=== PATIENT | female | born 1990 | race American Indian/Alaskan Native ===

== ENCOUNTER 2016-09-30 14:29 | Outpatient (CLI) | payer MEDICAID ==
[2016-09-30 15:35] VITALS: BP 130/77
== END 2016-09-30 16:28 | disposition home or self-care (01) ==
LOC: TRG 14:29 → LD 15:31 → TRG 16:28
PROVIDERS: ATTEND Obstetrics & Gynecology
DX: O77.9 Labor and delivery complicated by fetal stress, unspecified (principal); O47.1 False labor at or after 37 completed weeks of gestation; Z3A.39 39 weeks gestation of pregnancy
CPT/HCPCS: 59025

== ENCOUNTER 2016-10-02 03:24 | Outpatient (CLI) | payer MEDICAID ==
[2016-10-02 03:41] VITALS: BP 107/69
[2016-10-02] MEDS ORDERED: VISTARIL PO ONE (05:11)
== END 2016-10-02 05:23 | disposition home or self-care (01) ==
LOC: TRG 03:24
PROVIDERS: ATTEND Obstetrics & Gynecology
DX: O77.9 Labor and delivery complicated by fetal stress, unspecified (principal); O47.9 False labor, unspecified; Z3A.00 Weeks of gestation of pregnancy not specified
CPT/HCPCS: Q0177

== ENCOUNTER 2016-10-02 23:32 | Inpatient (IN) | payer MEDICAID ==
[2016-10-03] MEDS ORDERED: LACTATED RINGERS 1,000 ML ONE (00:02)
[2016-10-03] MEDS: LACTATED RINGERS 1,000 ML IV SCH ×2 (00:20→16:52)
[2016-10-03] MEDS ORDERED: MORPHINE IV ONE ×2 (02:07→02:15)
[2016-10-03] MEDS ORDERED: STADOL IV PRN (04:38)
[2016-10-03] MEDS ORDERED: STADOL ONE (04:45)
[2016-10-03 05:29] LABS: Hematocrit 33.3 % (30.3-42.9); Mean Corpuscular HGB Conc 33 % (30-34); Mean Corpuscular Hemoglobin 29 pg (28-32); Mean Corpuscular Volume 89 fl (79-97); Platelet Count 231 K/mm3 (140-440); Red Blood Count 3.73 M/mm3 (3.65-5.03); Red Cell Distribution Width 13.6 % (13.2-15.2); White Blood Count 13.6 K/mm3 (4.5-11.0)
[2016-10-03] MEDS ORDERED: ePHEDrine SULFATE ONE (07:12)
--- NOTE | 2016-10-03 08:11 | Ultrasound Report ---
BIOPHYSICAL PROFILE: INDICATION: well being. COMPARISON: None similar. TECHNIQUE: Transabdominal ultrasound with Doppler interrogation. 2 - breathing movements 2 - movements 2 - posture and tone 2 - Qualitative amniotic fluid volume 8 - TOTAL SCORE OF POSSIBLE 8 Heart Rate (bpm) 154
--- NOTE | 2016-10-03 08:13 | Anesthesia Consultation ---
Anesthesia Consult and Med Hx Date of service: 10/03/16 - Airway Anesthetic Teeth Evaluation: Good ROM Head & Neck: Adequate Mental/Hyoid Distance: Adequate Mallampati Class: Class II Intubation Access Assessment: Probably Good - Pulmonary Exam CTA: Yes - Cardiac Exam Cardiac Exam: RRR - Pre-Operative Health Status ASA Pre-Surgery Classification: ASA2 Proposed Anesthetic Plan: Epidural - Pulmonary Hx Asthma: No COPD: No Hx Pneumonia: No - Cardiovascular System Hx Hypertension: No - Central Nervous System Hx Seizures: No Hx Psychiatric Problems: No - Endocrine Hx Renal Disease: No Hx End Stage Renal Disease: No Hx Hypothyroidism: No Hx Hyperthyroidism: No - Hematic Hx Anemia: No Hx Sickle Cell Disease: No - Other Systems Hx Alcohol Use: No
[2016-10-03] MEDS ORDERED: ePHEDrine SULFATE IV PRN (08:14)
[2016-10-03] MEDS ORDERED: NARCAN 2 MG/2 ML IV PRN (08:14)
--- NOTE | 2016-10-03 08:19 | Ultrasound Report ---
OB LIMITED INDICATION: BRIDGETTE. COMPARISON: None similar at this institution. TECHNIQUE: Transabdominal grayscale ultrasound with Doppler interrogation. Gestation: Alejo Amniotic Fluid: WNL (7-24 cm) BRIDGETTE = 10.5 cm Heart Rate: 152 BPM
[2016-10-03] MEDS ORDERED: fentaNYL-BUPIV 2 MCG/ML-0.125% 100 ML EPIDURAL ONE (08:57)
[2016-10-03] MEDS: fentaNYL-BUPIV 2 MCG/ML-0.125% 100 ML EPIDURAL SCH ×2 (09:20→16:50)
[2016-10-03] MEDS ORDERED: D5LR 1,000 ML IV SCH (09:30)
[2016-10-03] MEDS ORDERED: FLUARIX QUAD 2016-2017(36 MOS+) IM ONE (12:00)
[2016-10-03] MEDS ORDERED: PITOCin/NS 30 UNIT/500ML 500 ML IV SCH (13:00)
[2016-10-03] MEDS ORDERED: XYLOCAINE MPF 2% ONE ×3 (19:42→22:30)
[2016-10-03] MEDS ORDERED: ZOFRAN IM ONE (20:41)
[2016-10-03] MEDS ORDERED: ZOFRAN ONE (20:47)
--- NOTE | 2016-10-03 21:59 | History and Physical Report ---
History of Present Illness Date of examination: 10/03/16 Date of admission: 10/03/16 02:33 Chief complaint: I'm having contractions History of present illness: Patient is a 26 year old who presents at 40.1 weeks in active labor. While being monitored in triage, patient had srom. Patient had late entry into care at 20 weeks but has had an otherwise uncomplicated course. Past History Past Medical History: no pertinent history Past Surgical History: no surgical history - Obstetrical History Expected Date of Delivery: 10/02/16 Actual Gestation: 40 Week(s) 1 Day(s) : 2 Para: 0 Medications and Allergies Allergies Allergy/AdvReac Type Severity Reaction Status Date / Time Cephalosporins Allergy Rash Verified 09/22/15 18:43 Home Medications Medication Instructions Recorded Confirmed Last Taken Type No Known Home Medications [No 10/03/16 10/03/16 Unknown History Reported Home Medications] Active Meds: Active Medications Butorphanol Tartrate (Stadol) 2 mg IV Q2H PRN PRN Reason: Labor Pain Last Admin: 10/03/16 05:10 Dose: 2 mg Ephedrine Sulfate (Ephedrine Sulfate) 10 mg IV Q2M PRN PRN Reason: Hypotension Stop: 10/04/16 08:13 Lactated Ringer's (Lactated Ringers) 1,000 mls @ 125 mls/hr IV DIRECT KELLY Last Admin: 10/03/16 16:52 Dose: 125 mls/hr Fentanyl/Bupivacaine/Sodium Chlor (Fentanyl-Bupiv 2 Mcg/Ml-0.125%) 100 mls @ 12 mls/hr EPIDURAL TITR KELLY PRN Reason: Protocol Last Admin: 10/03/16 16:50 Dose: 12 mls/hr Oxytocin/Sodium Chloride (Pitocin/Ns 30 Unit/500ml) 500 mls @ 4 mls/hr IV TITR KELLY; 4 MILLIUNITS/MIN PRN Reason: Protocol Last Titration: 10/03/16 20:53 Dose: 10 milliunits/min Naloxone HCl (Narcan 2 Mg/2 Ml) 0.2 mg IV Q5M PRN PRN Reason: Respiratory sedation Stop: 10/04/16 08:13 Review of Systems All systems: negative Genitourinary: pelvic pain, contractions - Vital Signs Vital signs: Vital Signs Pulse BP Pulse Ox 111 H 119/73 97 10/02/16 23:46 10/02/16 23:46 10/02/16 23:46 Temp Pulse Resp BP Pulse Ox 98.1 F 74 18 129/76 100 10/03/16 19:28 10/03/16 21:50 10/03/16 19:28 10/03/16 21:32 10/03/16 21:50 - Physical Exam Breasts: Cardiovascular: Regular rate, Normal S1, Normal S2 Lungs: Positive: Clear to auscultation, Normal air movement Abdomen: Positive: normal appearance, soft, normal bowel sounds. Negative: distention, tenderness Genitourinary (Female): Positive: normal external genitalia, normal perenium Vulva: both: normal Vagina: Positive: normal moisture. Negative: discharge Cervix: Negative: lesion, discharge Uterus: Positive: normal size, normal contour Adnexa: both: normal Anus/Rectum: Positive: normal perianal skin, heme negative. Negative: rectal mass, hemorrhoids Extremities: Deep Tendon Reflex Grade: Normal +2 - Obstetrical Cervical Dilatation: 3 Cervical Effacement Percentage: 80 Uterine Contraction Pattern: Irregular Uterine Contraction Intensity: Moderate Results Result Diagrams: 10/03/16 05:07 Abnormal lab results 10/03/16 Range/Units 05:07 WBC 13.6 H (4.5-11.0) K/mm3 All other labs normal. Assessment and Plan IUP at 40.1 weeks here in active labor with srom. Admit for labor management. Anticipate .
[2016-10-03] MEDS ORDERED: SUBLIMAZE ONE (22:30)
[2016-10-04] MEDS: fentaNYL-BUPIV 2 MCG/ML-0.125% 100 ML EPIDURAL SCH (00:01)
[2016-10-04] MEDS: LACTATED RINGERS 1,000 ML IV SCH (00:59)
--- NOTE | 2016-10-04 01:23 | Event Note ---
Date: 10/04/16 Patient now complaining of needing to push and persistent back pain inspite of having an epidural which has been re-dosed. Vaginal exam /- with very edematous anterior lip. This represents no cervical change since 1999 with likely persistent occiput posterior position. Patient advised. Will prepare for section.
[2016-10-04] MEDS ORDERED: REGLAN IV ONE (01:29)
[2016-10-04] MEDS ORDERED: BICITRA PO ONE (01:29)
[2016-10-04] MEDS ORDERED: PEPCID IV ONE (01:29)
[2016-10-04] MEDS ORDERED: PITOCin/NS 20 UNIT/1000ML DRIP 1,000 ML IV NR (02:00)
[2016-10-04] MEDS ORDERED: CLEOCIN 600 MG/50 mL 50 ML IV NR (02:00)
[2016-10-04] MEDS ORDERED: LACTATED RINGERS 1,000 ML IV NR (02:00)
[2016-10-04] MEDS ORDERED: XYLOCAINE MPF 2% ONE ×2 (03:38)
[2016-10-04] MEDS ORDERED: MORPHINE ONE (03:50)
[2016-10-04] MEDS ORDERED: WATER FOR IRRIG STERILE IR ONE (04:15)
[2016-10-04] MEDS ORDERED: NACL 0.9% IR ONE (04:15)
[2016-10-04] MEDS ORDERED: ZOFRAN ONE (04:43)
[2016-10-04] MEDS ORDERED: PITOCin/NS 20 UNIT/1000ML DRIP 1,000 ML IV SCH (06:40)
[2016-10-04] MEDS ORDERED: NARCAN 0.4 MG/1 ML IV PRN ×2 (06:40→08:30)
[2016-10-04] MEDS ORDERED: SODIUM CHLORIDE FLUSH SYRINGE 10 ML IV PRN ×2 (06:40→09:00)
[2016-10-04] MEDS ORDERED: LANSINOH TP PRN (06:40)
[2016-10-04] MEDS ORDERED: TYLENOL PO PRN (06:40)
[2016-10-04] MEDS ORDERED: TUCKS PAD TP PRN (06:40)
[2016-10-04] MEDS: TORADOL IV PRN ×2 (07:14→15:51)
--- NOTE | 2016-10-04 07:16 | Post Anesthesia Evaluation ---
- Post Anesthesia Evaluation Patient Participated: Yes Airway Patent: Yes Stable Respiratory Function: Yes Nausea/Vomiting: No Temp > 96.8F: Yes Pain Manageable: Yes Adequeate Hydration: Yes Anesthesia Complications: No Block Receding Appropriately: Yes Patient on Ventilator: No
[2016-10-04] MEDS ORDERED: ZOFRAN IV PRN ×2 (08:30→09:00)
[2016-10-04] MEDS ORDERED: DILAUDID IV PRN (08:30)
[2016-10-04] MEDS ORDERED: PHENERGAN PO PRN (09:00)
[2016-10-04] MEDS ORDERED: PHENERGAN PR PRN (09:00)
[2016-10-04] MEDS ORDERED: D5LR 1,000 ML IV SCH (11:00)
[2016-10-04] MEDS: PRENATAL VITAMIN PO SCH (15:36)
[2016-10-04] MEDS ORDERED: AMMONIA INHALANT IH ONE (17:01)
[2016-10-04] MEDS: PERCOCET 5/325 PO PRN ×2 (18:17→23:48)
[2016-10-04 18:59] LABS: Hematocrit 26.1 % (30.3-42.9); Hemoglobin 8.6 gm/dl (10.1-14.3)
[2016-10-04] MEDS: MOTRIN PO PRN (20:58)
[2016-10-04] MEDS: MYLICON PO PRN (20:58)
[2016-10-05] MEDS: MOTRIN PO PRN ×4 (04:52→22:52)
[2016-10-05] MEDS: MYLICON PO PRN (04:52)
[2016-10-05] MEDS ORDERED: BOOSTRIX IM ONE (06:00)
[2016-10-05] MEDS: PERCOCET 5/325 PO PRN ×3 (09:52→22:52)
--- NOTE | 2016-10-05 11:00 | Progress Note ---
Subjective Date of service: 10/05/16 Interval history: 1st POD after Patient is in the bed, comfortable. pain is well controlled with pain meds. Ambulated well. No residual neurological deficit. No anesthesia complications Objective - Constitutional Vitals: Vital Signs - 12hr 10/05/16 10/05/16 10/05/16 00:00 08:31 10:18 Temperature 99.0 F 97.9 F 94.8 F L Pulse Rate [ 95 H 80 80 From Monitor] Respiratory 20 18 18 Rate Blood Pressure 118/54 130/73 130/73 [Right Arm] - Labs CBC & Chem 7: 10/04/16 17:25 Labs: Abnormal lab results 10/04/16 Range/Units 17:25 Hgb 8.6 L (10.1-14.3) gm/dl Hct 26.1 L D (30.3-42.9) %
[2016-10-05] MEDS: PRENATAL VITAMIN PO SCH (12:43)
[2016-10-05] MEDS ORDERED: DERMOPLAST TP PRN (13:55)
--- NOTE | 2016-10-05 17:31 | Progress Note ---
Assessment and Plan POD 1 s/p pltcs. Doing well. No flatus. Encourage ambulation. Continue with routine care. Subjective - Subjective Date of service: 10/05/16 Interval history: Patient is a 26 year old who presents at 40.1 weeks in active labor. While being monitored in triage, patient had srom. Patient had late entry into care at 20 weeks but has had an otherwise uncomplicated course. Patient reports: appetite normal, voiding normally, ambulating normally [place]ain: doing well Objective - Vital Signs Latest vital signs: Vital Signs Temp Pulse Resp BP 10/05/16 16:11 98.3 F 85 18 119/7 10/05/16 10:18 94.8 F L 80 18 130/73 10/05/16 08:31 97.9 F 80 18 130/73 10/05/16 00:00 99.0 F 95 H 20 118/54 Intake and Output 10/05/16 10/05/16 10/05/16 06:59 14:59 22:59 Intake Total 720 Output Total 1000 1 Balance -1000 719 Intake: Oral 720 Output: Urine 1000 1 Void 1000 1 Other: Total, Intake Amount 360 Total, Output Amount 600 1 # Voids Void 1 - Exam Cardiovascular: Present: Regular rate, Normal S1 Lungs: Present: Clear to auscultation, Normal air movement Abdomen: Present: normal appearance, soft Uterus: Present: normal, fundal height below umbilicus Extremities: Present: normal Incision: Present: normal, dry, intact - Labs Labs: Abnormal lab results 10/04/16 Range/Units 17:25 Hgb 8.6 L (10.1-14.3) gm/dl Hct 26.1 L D (30.3-42.9) %
[2016-10-06] MEDS: PERCOCET 5/325 PO PRN ×3 (06:24→18:39)
--- NOTE | 2016-10-06 09:53 | Progress Note ---
Assessment and Plan pod 2 routine post op care. Subjective - Subjective Date of service: 10/06/16 Principal diagnosis: pod 2 s/p c/s Interval history: routine post op care. Patient reports: appetite normal, voiding normally, pain well controlled [place]: doing well Objective - Vital Signs Latest vital signs: Vital Signs Temp Pulse Resp BP 10/06/16 08:00 98.4 F 66 18 126/74 10/06/16 00:00 98.4 F 73 20 138/63 10/05/16 16:11 98.3 F 85 18 119/7 10/05/16 10:18 94.8 F L 80 18 130/73 Intake and Output 10/05/16 10/06/16 10/06/16 22:59 06:59 14:59 Intake Total 960 120 Output Total 5 Balance 955 120 Intake: Oral 960 120 Output: Urine 5 Void 5 Other: Total, Intake Amount 240 120 Total, Output Amount 5 # Voids Void 2 2 - Exam Breasts: Present: deferred Cardiovascular: Present: Regular rate, Normal S1, Normal S2 Lungs: Present: Clear to auscultation Abdomen: Present: normal appearance, soft Vulva: both: normal Uterus: Present: normal, firm Extremities: Present: normal Deep Tendon Reflex Grade: Normal +2 Incision: Present: normal, dry, intact
--- NOTE | 2016-10-06 10:32 | Discharge Summary ---
Providers - Providers Date of Admission: 10/03/16 02:33 Date of discharge: 10/07/16 Attending physician: KALEB GO Primary care physician: KALEB GO Hospitalization Reason for admission: active labor Delivery: Procedure: section, primary low transverse Procedure details: s/p primary c/s of male infant Episiotomy: none Laceration: none Incision: normal, dry, intact Other procedures: none complications: none Discharge diagnosis: IUP at term delivered baby: male Hospital course: routine post op course Condition at discharge: Good Disposition: DISCHARGED TO HOME OR SELFCARE - Discharge Diagnoses (1) Status post primary low transverse section Status: Acute (2) Anemia Status: Acute Comment: from the blood loss of delivery Plan - Discharge Medications Prescriptions: Docusate Sodium [Colace] 100 mg PO BID PRN #60 capsule PRN Reason: Constipation Ferrous Sulfate [Feosol 325 MG tab] 325 mg PO BID #60 tablet Ibuprofen [Motrin] 800 mg PO Q8HR PRN #40 tablet PRN Reason: Pain oxyCODONE /ACETAMINOPHEN [Percocet 5/325] 2 tab PO Q4HR #40 tab - Provider Discharge Summary Activity: routine, no sex for 6 weeks, no heavy lifting 4 weeks, no strenuous exercise Diet: routine Instructions: routine Additional instructions: [] Smoking cessation referral if applicable(refer to patient education folder for contact #) [] Refer to [facility]'s [facility] Booklet Call your doctor immediately for: * Fever > 100.5 * Heavy vaginal bleeding ( >1 pad per hour) * Severe persistent headache * Shortness of breath * Reddened, hot, painful area to leg or breast * Drainage or odor from incision. * Keep incision clean and dry at all times and follow doctor's instructions regarding bathing/showering - Follow up plan Follow up: KALEB GO MD [Primary Care Provider] - 14 Days
[2016-10-06] MEDS: PRENATAL VITAMIN PO SCH (10:44)
[2016-10-06] MEDS: FEOSOL PO SCH ×2 (10:44→22:07)
[2016-10-07] MEDS: PERCOCET 5/325 PO PRN ×3 (00:20→12:19)
[2016-10-07] MEDS: FEOSOL PO SCH (09:38)
[2016-10-07] MEDS: PRENATAL VITAMIN PO SCH (09:38)
[2016-10-07 13:58] VITALS: BP 115/78
--- NOTE | 2016-10-16 23:04 | Operative Report ---
PREOPERATIVE DIAGNOSES: 1. Intrauterine at 40-2/7 weeks. 2. Prolonged rupture of membranes. 3. Arrest of dilatation. POSTOPERATIVE DIAGNOSES: 1. Intrauterine at 40-2/7 weeks. 2. Prolonged rupture of membranes. 3. Arrest of dilatation. PROCEDURE: Primary low transverse section. SURGEON: Dr. Luda Madison. ANESTHESIA: Spinal epidural. ESTIMATED BLOOD LOSS: 600. IV FLUIDS: 1100. URINE OUTPUT: 200, clear, at the end of the procedure. FINDINGS: Viable male , weight 7 pounds 6 ounces, 3463 kilograms, Apgars 6, 8, and 9. INDICATION: The patient is a 26-year-old 1 who presented with rupture of membranes. She was given Pitocin and did reach adequate contractions. However, her cervix stalled at approximately 8 cm and now she did not dilate any further. At this point, the decision was made to proceed with a section. DESCRIPTION OF PROCEDURE: The patient was taken to the OR with IV running and in place. She was properly identified as herself. Her epidural was redosed for a spinal level. She was then placed in a dorsal supine position with a leftward tilt. She was then prepped and draped in normal sterile fashion. Attention was then turned to the patient's abdomen. An Allis test confirmed adequate anesthesia. An incision was made using the scalpel and carried to the underlying fascia using the scalpel and a Bovie. Fascia was incised in the midline and the incision was extended bilaterally using the curved Salamanca scissors. The fascia was then dissected from the underlying rectus muscles in a series of sharp and blunt dissection. Rectus muscles were in the midline bluntly using the surgeon's fingers. The incision was then carried inferiorly and superiorly using the Metzenbaum scissors. Once inside the peritoneal cavity, it was grasped with 2 Allis clamps and then entered sharply using the Metzenbaum scissors. The bladder blade was used to place into the incision to protect the bladder. The bladder flap was then created and the bladder blade was then replaced. The hysterotomy incision was made. There was some dark meconium staining at the time of entry into the uterine cavity. The was noted to be in the occiput posterior position. He was delivered atraumatically. The mouth and nose were suctioned on the field. The cord was then clamped and cut and was handed to the awaiting NICU personnel. The placenta was then removed manually. The uterus was then exteriorized and cleared of all clots and debris. The uterine incision was then closed in a running locked fashion using 1 chromic. The incision was hemostatic at this point. The abdomen and pelvis were then copiously irrigated with warm normal saline. The uterus was then placed into the abdominal cavity. A second look assured hemostasis. At this point, the bladder blade was removed. The muscles were reapproximated in the midline using individual sutures of 0 Vicryl. The fascia was then closed in a running fashion using 0 Vicryl. The subcutaneous tissue was then also irrigated and the skin was closed in a subcuticular fashion using 4-0 Monocryl. The sponge, lap, needle, and instrument counts were correct x 2. The patient tolerated the procedure well. She was then taken to recovery in stable condition. JOB# [id number] HARI/MADALYN THAKKAR
== END 2016-10-07 13:30 | disposition home or self-care (01) | DRG 765 ==
LOC: TRG 23:32 → LD 10-03 02:33 → UNDOADMOB 10-03 02:33 → INTOOBSV 10-03 02:33 → OBSVTOIN 10-03 02:33 → LD 10-03 06:54 → APU 10-04 04:40 → OB 10-04 07:12
PROVIDERS: ADMIT Obstetrics & Gynecology; ATTEND Obstetrics & Gynecology
PROC: 10D00Z1 Extraction of Products of Conception, Low, Open Approach (ICD-10-PCS; principal; 2016-10-04)
DX: O42.02 Full-term premature rupture of membranes, onset of labor within 24 hours of rupture (principal); D62 Acute posthemorrhagic anemia; O99.02 Anemia complicating childbirth; Z3A.40 40 weeks gestation of pregnancy; Z37.0 Single live birth; Z88.8 Allergy status to other drugs, medicaments and biological substances; O62.1 Secondary uterine inertia
CPT/HCPCS: 36415; 76815; 76819; 85014; 85018; 85027; 86850; 86900; 86901; 90471; 90686; 90715; 99211; A6250; G0463; J0595; J1170; J1885; J2270; J2405; J2590; J2765; J3010; J7120; J7121